=== PATIENT | male | born 2000 | race Two or more races ===

== ENCOUNTER 2021-06-28 16:35 | Emergency (ER) | payer OTHER ==
[~2021-06-28] VITALS: Ht 188 cm; Wt 86.3 kg
[2021-06-28] MEDS ORDERED: LIDOCAINE-MPF 1%, 5ML INFIL ONE (20:00)
[2021-06-28] MEDS ORDERED: LIDOCAINE-MPF 1%, 5ML ONE (20:03)
[2021-06-28] MEDS ORDERED: IBUPROFEN 800 MG TABLET PO ONE (21:00)
[2021-06-28] MEDS ORDERED: IBUPROFEN 800 MG TABLET ONE (21:03)
[2021-06-28 21:13] VITALS: BP 149/92
== END 2021-06-28 21:15 | disposition home or self-care (01) ==
LOC: ED 17:00
DX: L60.0 Ingrowing nail (principal); R00.0 Tachycardia, unspecified
CPT/HCPCS: 11730; 99284